=== PATIENT | female | born 1995 | race Caucasian/White ===

== ENCOUNTER 2019-06-09 15:19 | Inpatient (IN) | payer BC ==
[~2019-06-09 15:19] MED LIST: Bupivacaine/Epinephrine 0.25% 30 ML VIAL ONE
[2019-06-09] MEDS ORDERED: Promethazine HCl 25 MG/ML VIAL IM PRN (22:28)
[2019-06-09] MEDS ORDERED: Lidocaine 1% (PF) 30 ML VIAL SC PRN (22:28)
[2019-06-09] MEDS ORDERED: Ondansetron PF 4 MG/2 ML Vial IVP PRN (22:28)
[2019-06-09] MEDS ORDERED: Zolpidem Tartrate 5 MG TAB PO PRN (22:28)
[2019-06-09] MEDS ORDERED: NS / Oxytocin 40 units/1000ml 1,000 ML IV PRN (22:28)
[2019-06-09] MEDS ORDERED: Lactated Ringer's 1,000 ML IV SCH (22:28)
[2019-06-09] MEDS ORDERED: hydrALAZINE 20 MG/ML VIAL SLOW IVP PRN (22:28)
[2019-06-09] MEDS ORDERED: HYDROcodone/Acetaminophen 5/325 mg Tablet PO PRN ×2 (22:28)
[2019-06-09] MEDS ORDERED: Ibuprofen 800 MG TAB PO PRN (22:28)
[2019-06-09] MEDS ORDERED: Misoprostol 100 MCG TAB VAG SCH (23:00)
[2019-06-09 23:10] VITALS: BMI 35.6
[2019-06-09] MEDS: NS w/ Oxytocin 10 units 500 ML IV SCH (23:16)
[2019-06-09 23:30] LABS: Hemoglobin 11.2 g/dL (12.0-16.0); Mean Corpuscular HGB CONC 34.2 g/dL (32.0-36.0); Mean Corpuscular Hemoglobin 28.6 pg (27.0-31.0); Mean Corpuscular Volume 83.7 fL (78.0-98.0); Mean Platelet Volume 8.4 fL (7.4-10.4); Platelet Count 155 thou/uL (130-400); RBC Distribution Width 12.9 % (11.5-14.5); Red Blood Cell (RBC) Count 3.92 mill/uL (4.20-5.40); White Blood Cell (WBC) Count 6.9 thou/uL (4.8-10.8)
[2019-06-09] MEDS: Misoprostol 100 MCG TAB VAG SCH (23:33)
[2019-06-10 00:08] LABS: HBSAg Index 0.18 S/CO (0-0.99); Hep B Surf Ag Non-Reactive S/CO (NonReactive); Syphilis Antibody Nonreactive (Nonreactive); Syphilis Antibody Index 0.03 S/CO (<1.00 Non-Reactive)
[2019-06-10] MEDS: Misoprostol 100 MCG TAB VAG SCH ×3 (03:14→20:22)
[2019-06-10] MEDS: Butorphanol Tartrate 1 MG/ML VIAL SLOW IVP PRN ×2 (03:47→06:16)
[2019-06-10] MEDS: Lactated Ringer's 1,000 ML IV SCH ×3 (06:17→20:22)
[2019-06-10] MEDS ORDERED: Fentanyl 4 mcg/Bup 0.1% Cadd 100 ML ONE (06:45)
[2019-06-10] MEDS: NS w/ Oxytocin 10 units 500 ML IV SCH (08:18)
[2019-06-10] MEDS ORDERED: Promethazine HCl 25 MG/ML VIAL IM PRN (13:50)
[2019-06-10] MEDS ORDERED: diphenhydrAMINE 50 MG/ML VIAL IVP PRN (13:50)
[2019-06-10] MEDS ORDERED: Ondansetron PF 4 MG/2 ML Vial IVP PRN ×2 (13:50→17:19)
[2019-06-10] MEDS ORDERED: Lactated Ringer's 500 ML IV PRN (13:50)
[2019-06-10] MEDS ORDERED: Acetaminophen 325 MG TAB PO PRN (13:50)
[2019-06-10] MEDS ORDERED: ePHEDrine/0.9% NaCl/PF SYRINGE 50 mg/10 ml SLOW IVP PRN (13:50)
[2019-06-10] MEDS ORDERED: Naloxone HCl 0.4 mg/ml Vial IVP PRN ×2 (13:50)
[2019-06-10] MEDS ORDERED: Communication Order-Pharmacy FS SCH (14:00)
[2019-06-10] MEDS ORDERED: Fentanyl 4 mcg/Bupivacaine 0.1% Cassette 100 ML EPIDURAL SCH (14:00)
[2019-06-10] MEDS ORDERED: Benzocaine-Menthol 82.5 ML CAN TOP PRN (17:19)
[2019-06-10] MEDS ORDERED: Adacel (T-DAP) 0.5 ML SYRINGE IM ONE (17:19)
[2019-06-10] MEDS ORDERED: Lanolin Ointment 7 GM TUBE TOP PRN (17:19)
[2019-06-10] MEDS ORDERED: diphenhydrAMINE 25 MG CAP PO PRN (17:19)
[2019-06-10] MEDS ORDERED: NS / Oxytocin 40 units/1000ml 1,000 ML IV SCH (17:19)
[2019-06-10] MEDS ORDERED: Preparation H Ointment 28 GM TUBE PR PRN (17:19)
[2019-06-10] MEDS ORDERED: hydrALAZINE 20 MG/ML VIAL SLOW IVP PRN (17:19)
[2019-06-10] MEDS ORDERED: Zolpidem Tartrate 5 MG TAB PO PRN (17:19)
[2019-06-10] MEDS ORDERED: HYDROcodone/Acetaminophen 5/325 mg Tablet PO PRN ×2 (17:19)
[2019-06-10] MEDS ORDERED: Bisacodyl 10 MG SUPP PR PRN (17:19)
[2019-06-10] MEDS ORDERED: Milk Of Magnesia 30 ML UDCUP PO PRN (17:19)
[2019-06-10] MEDS: Ferrous Sulfate 325 MG TAB PO SCH (20:20)
[2019-06-10] MEDS: Ibuprofen 800 MG TAB PO SCH (22:30)
[2019-06-10] MEDS: Docusate Calcium (SURFAK) 240 MG CAP PO SCH (22:30)
[2019-06-11] MEDS: Ibuprofen 800 MG TAB PO SCH ×3 (05:56→22:00)
[2019-06-11] MEDS: Prenatal Vitamin 1 TAB PO SCH (09:22)
[2019-06-11] MEDS: Docusate Calcium (SURFAK) 240 MG CAP PO SCH ×2 (09:22→22:00)
[2019-06-11] MEDS: Ferrous Sulfate 325 MG TAB PO SCH ×2 (09:23→18:15)
--- NOTE | 2019-06-11 13:19 | PDOC.PP ---
Post Progress Note Post Day #: 1 PO intake tolerated: yes Flatus: yes Ambulation: yes Vital Signs (12 hours) Temp Pulse Resp BP Pulse Ox 06/11/19 08:44 97.6 F 75 20 112/65 96 06/11/19 04:33 69 18 109/76 99 Weight Weight 228 lb - Physical Examination General: NAD Cardiovascular: no m/r/g, RRR Respiratory: clear to auscultation bilaterally Abdominal: + bowel sounds, lochia Extremities: negative homans (B) Psychiatric: A&Ox3, normal affect Result Diagrams: 06/09/19 23:19 Additional Labs: Post Labs Blood Type A POSITIVE 06/09/19 23:19 Hep Bs Antigen Non-Reactive S/CO (NonReactive) 06/09/19 23:19 - Assessment/Plan doing well ppd 2 dc anticipated
--- NOTE | 2019-06-12 02:47 | PDOC.PP ---
Post Progress Note Post Day #: PPD2 Subjective: Resting, no complaints. PO intake tolerated: yes Flatus: yes Ambulation: yes Vital Signs (12 hours) Temp Pulse Resp BP Pulse Ox 06/11/19 19:35 98.5 F 96 18 122/64 97 Weight Weight 103.419 kg - Physical Examination General: NAD Respiratory: non-labored breathing Neurological: no gross focal deficits Psychiatric: normal affect Result Diagrams: 06/09/19 23:19 Additional Labs: Post Labs Blood Type A POSITIVE 06/09/19 23:19 Hep Bs Antigen Non-Reactive S/CO (NonReactive) 06/09/19 23:19 - Assessment/Plan Doing well. DC home. RTC with Dr. Sanabria in 6 weeks. Precautions.
[2019-06-12] MEDS: Ibuprofen 800 MG TAB PO SCH (05:49)
[2019-06-12 08:36] VITALS: BP 117/81; TEMP 98.2
[2019-06-12] MEDS: Docusate Calcium (SURFAK) 240 MG CAP PO SCH (08:49)
[2019-06-12] MEDS: Ferrous Sulfate 325 MG TAB PO SCH (08:49)
[2019-06-12] MEDS: Prenatal Vitamin 1 TAB PO SCH (08:49)
== END 2019-06-12 11:30 | disposition home or self-care (01) | DRG 807 ==
LOC: L&D 22:18 → 3SW 06-10 18:06
PROVIDERS: ADMIT Obstetrics & Gynecology; ATTEND Obstetrics & Gynecology
PROC: 10907ZC Drainage of Amniotic Fluid, Therapeutic from Products of Conception, Via Natural or Artificial Opening (ICD-10-PCS; principal; 2019-06-09)
PROC: 10E0XZZ Delivery of Products of Conception, External Approach (ICD-10-PCS; 2019-06-09)
PROC: 0KQM0ZZ Repair Perineum Muscle, Open Approach (ICD-10-PCS; 2019-06-09)
PROC: 3E033VJ Introduction of Other Hormone into Peripheral Vein, Percutaneous Approach (ICD-10-PCS; 2019-06-09)
DX: O69.1XX0 Labor and delivery complicated by cord around neck, with compression, not applicable or unspecified (principal); Z37.0 Single live birth; O70.1 Second degree perineal laceration during delivery; Z3A.39 39 weeks gestation of pregnancy
CPT/HCPCS: 36415; 51702; 85027; 86780; 86850; 86900; 86901; 87340; 90715; J0595; J2405; J2590

== ENCOUNTER 2021-02-23 08:18 | Outpatient (CLI) | payer BC | END 2021-02-23 08:19 | disposition home or self-care (01) | LOC: RAD-FRANK 08:18 | PROVIDERS: ATTEND Nurse Practitioner Family | DX: M25.571 Pain in right ankle and joints of right foot (principal) ==